=== PATIENT | female | born 1995 | race Caucasian/White ===

== ENCOUNTER 2021-09-24 03:05 | Observation (INO) | END 2021-09-24 04:12 | disposition home or self-care (01) | LOC: 1NENULAB | PROVIDERS: ADMIT Obstetrics & Gynecology; ATTEND Obstetrics & Gynecology ==

== ENCOUNTER 2021-11-14 08:52 | Inpatient (IN) ==
[~2021-11-14 08:52] MED LIST: Famotidine 20 MG/2 ML VIAL IVP PRN; Metoclopramide 10 MG/2 ML VIAL IVP PRN; Naloxone 0.4 MG/ML INJ IVP PRN
[2021-11-14] MEDS ORDERED: Ringers Solution, Lactated 1,000 ML IVC ONE (08:57)
[2021-11-14] MEDS ORDERED: Ringers Solution, Lactated 1,000 ML IVC SCH ×2 (09:00→18:17)
[2021-11-14 10:17] LABS: Basophils % 0.3 %; Eosinophils % 0.1 %; Hematocrit 34.9 % (35.3-44.9); Hemoglobin 11.8 g/dL (11.5-15.4); Lymphocytes # 1.8 K/mcL (0.6-4.6); Lymphocytes % 11.8 %; Mean Corpuscular HGB Conc 33.8 g/dL (31.6-35.5); Mean Corpuscular Hemoglobin 30.3 pg (28.0-33.3); Mean Corpuscular Volume 89.5 fL (83.0-100.0); Monocytes % 6.5 %; Neutrophils # 11.8 K/mcL (1.6-8.9); Platelet Count 322 K/mcL (140-400); Red Cell Distribution Width 12.3 % (11.5-14.5); Segmented Neutrophils % 79.3 %
[2021-11-14 10:20] LABS: White Blood Count 14.9 K/mcL (4.3-11.1)
[2021-11-14 12:14] LABS: Amphetamine Screen,Urine Negative ng/mL (Cutoff=1000); Barbiturate Screen,Urine Negative ng/mL (Cutoff=200); Benzodiazepines Screen,Urine Negative ng/mL (Cutoff=300); Cannabinoid Screen,Urine Negative ng/mL (Cutoff = 50); Cocaine Screen,Urine Negative ng/mL (Cutoff= 300); Opiate Screen,Urine Negative ng/mL (Cutoff=300); Phencyclidine Screen,Urine Negative ng/mL (Cutoff=25)
[2021-11-14] MEDS ORDERED: *HR* FentaNYL (PF) 100 MCG/2 ML VIAL ONE (13:00)
[2021-11-14] MEDS ORDERED: EPHEDrine 50 MG/ML VIAL ONE (13:00)
[2021-11-14] MEDS ORDERED: Ondansetron 4 MG/2 ML VIAL ONE (13:05)
[2021-11-14] MEDS ORDERED: CeFAZolin 2,000 MG/120 ML BAG IVPB ONE (13:07)
[2021-11-14] MEDS ORDERED: Ringers Solution, Lactated 1,000 ML ONE (14:12)
[2021-11-14] MEDS ORDERED: *HR* Morphine Sulfate/PF 10 MG/10 ML AMPUL ONE (14:25)
[2021-11-14] MEDS ORDERED: Acetaminophen IV 1,000 MG/100 ML BAG IVPB ONE (14:26)
[2021-11-14] MEDS ORDERED: *HR* HYDROmorphone PF 0.5 MG/0.5 ML SYRINGE IVP PRN (14:58)
[2021-11-14] MEDS ORDERED: Ondansetron 4 MG/2 ML VIAL IVP PRN ×2 (14:58→18:17)
[2021-11-14] MEDS ORDERED: Promethazine 6.25 MG in Water for inj. (sterile) 20 ML IVPB PRN (14:58)
[2021-11-14] MEDS ORDERED: *HR* OxyCODONE Immed Rel 5 MG TABLET PO PRN (18:17)
[2021-11-14] MEDS ORDERED: Naloxone 0.4 MG/ML INJ IVP PRN (18:17)
[2021-11-14] MEDS ORDERED: Rho Immune Globulin 1,500 UNIT SYRINGE IM ONE (18:17)
[2021-11-14] MEDS ORDERED: Simethicone 80 MG TAB.CHEW PO PRN (18:17)
[2021-11-14] MEDS ORDERED: *HR* Oxytocin 10 UNIT/ML VIAL IM ONE (18:17)
[2021-11-14] MEDS ORDERED: Metoclopramide 10 MG/2 ML VIAL IVP PRN (18:17)
[2021-11-14] MEDS: Ibuprofen 600 MG TABLET PO SCH (20:57)
[2021-11-15 04:31] LABS: Basophils % 0.1 %; Eosinophils # 0.2 K/mcL (0.0-0.6); Hematocrit 27.4 % (35.3-44.9); Immature Granulocytes % 0.9 % (0-4); Lymphocytes # 1.8 K/mcL (0.6-4.6); Lymphocytes % 11.9 %; Mean Corpuscular Hemoglobin 30.9 pg (28.0-33.3); Mean Corpuscular Volume 88.1 fL (83.0-100.0); Mean Platelet Volume 9.7 fL (9.4-12.4); Monocytes # 1.3 K/mcL (0.0-1.3); Monocytes % 8.3 %; Neutrophils # 11.6 K/mcL (1.6-8.9); Platelet Count 260 K/mcL (140-400); Red Blood Count 3.11 M/mcL (3.82-4.97); Red Cell Distribution Width 12.3 % (11.5-14.5); Segmented Neutrophils % 77.8 %
[2021-11-15 04:32] LABS: Hemoglobin 9.6 g/dL (11.5-15.4)
[2021-11-15] MEDS: Ibuprofen 600 MG TABLET PO SCH ×3 (04:40→18:49)
[2021-11-15] MEDS: Acetaminophen 325 MG TABLET PO SCH ×3 (04:40→18:49)
[2021-11-15] MEDS: Prenatal Vit/FA 1 EACH TABLET PO SCH (08:22)
[2021-11-15] MEDS ORDERED: Rho Immune Globulin 1,500 UNIT SYRINGE IM ONE (15:57)
[2021-11-16] MEDS: Acetaminophen 325 MG TABLET PO SCH ×3 (00:38→15:03)
[2021-11-16] MEDS: Ibuprofen 600 MG TABLET PO SCH ×3 (00:39→15:03)
[2021-11-16 07:01] VITALS: BP 119/75; PULSE 83; TEMP 98.2; O2SAT 97
[2021-11-16] MEDS: Prenatal Vit/FA 1 EACH TABLET PO SCH (08:29)
== END 2021-11-16 16:30 | disposition home or self-care (01) | DRG 786 ==
LOC: 1NENULAB → 1NENUOBS 18:09
PROVIDERS: ADMIT Obstetrics & Gynecology; ATTEND Obstetrics & Gynecology

== ENCOUNTER 2021-11-28 13:15 | Observation (INO) ==
[2021-11-28] MEDS ORDERED: Iopamidol - 370 500 ML MLS IVP ONE (13:48)
[2021-11-28] MEDS ORDERED: 0.9 % Sodium Chloride 1,000 ML IVC ONE (13:50)
[2021-11-28 14:31] LABS: Basophils % 0.5 %; Eosinophils # 0.3 K/mcL (0.0-0.6); Eosinophils % 3.3 %; Hematocrit 38.3 % (35.3-44.9); Hemoglobin 12.5 g/dL (11.5-15.4); Immature Granulocytes % 0.5 % (0-4); Lymphocytes # 1.7 K/mcL (0.6-4.6); Lymphocytes % 19.9 %; Mean Corpuscular HGB Conc 32.6 g/dL (31.6-35.5); Mean Corpuscular Hemoglobin 29.3 pg (28.0-33.3); Mean Corpuscular Volume 89.7 fL (83.0-100.0); Mean Platelet Volume 9.4 fL (9.4-12.4); Monocytes # 0.5 K/mcL (0.0-1.3); Monocytes % 5.6 %; Neutrophils # 6.1 K/mcL (1.6-8.9); Platelet Count 385 K/mcL (140-400); Red Blood Count 4.27 M/mcL (3.82-4.97); Red Cell Distribution Width 12.1 % (11.5-14.5); Segmented Neutrophils % 70.2 %; White Blood Count 8.7 K/mcL (4.3-11.1)
[2021-11-28 14:39] LABS: Bacteria,Urine Few per hpf (None-Few); Bilirubin,Urine Negative (Negative); Blood,Urine Small (Negative); Clarity,Urine Clear (Clear); Color,Urine Yellow (Yellow); Glucose,Urine (UA) Normal (Normal); Ketones,Urine Negative (Negative); Leukocyte Esterase,Urine Small (Negative); Mucus,Urine Few per lpf (None-Few); Nitrite,Urine Negative (Negative); PH,Urine 6.5 pH Units (5.0-8.0); Protein,Urine Trace mg/dL (Neg-Trace); Specific Gravity,Urine 1.019 (1.010-1.025); Squamous Epithelial Cell,Urine Few per hpf (None-Few); Urobilinogen,Urine Normal (Normal)
[2021-11-28 15:13] LABS: Alanine Aminotransferase 329 Units/L (7-52); Albumin 4.1 g/dL (3.5-5.7); Albumin/Globulin Ratio 1.3 (1.1-2.2); Alkaline Phosphatase 355 Units/L (34-104); Amylase 664 Units/L (29-103); Aspartate Amino Transferase 222 Units/L (13-39); BUN/Creatinine Ratio 17 (6-26); Blood Urea Nitrogen 13 mg/dL (6-20); Calcium 9.4 mg/dL (8.6-10.3); Carbon Dioxide 27 mEq/L (23-29); Chloride 104 mEq/L (98-107); Globulin 3.1 g/dL (2.4-3.5); Glucose 93 mg/dL (70-105); Lipase > 1800 Units/L (11-82); Osmolality,Calculated 288 (280-300); Potassium 3.7 mEq/L (3.5-5.1); Sodium 139 mEq/L (136-145); Total Protein 7.2 g/dL (6.4-8.9)
[2021-11-28] MEDS ORDERED: Piperacillin/Tazobactam 3.375 GM in 0.9 % Sodium Chloride Mini Bag 100 ML IVPB ONE (19:16)
[2021-11-28] MEDS: 0.9 % Sodium Chloride 1,000 ML IVC SCH (20:56)
[2021-11-28] MEDS ORDERED: Ondansetron 4 MG/2 ML VIAL IVP PRN ×2 (21:03→22:46)
[2021-11-28] MEDS ORDERED: Ketorolac 30 MG/ML VIAL IVP PRN (22:46)
[2021-11-28] MEDS ORDERED: Ipratropium Neb 0.5 MG NEBULIZER IH PRN (22:46)
[2021-11-28] MEDS ORDERED: *HR* Labetalol 20 MG/4 ML SYRINGE IVP PRN (22:46)
[2021-11-28] MEDS ORDERED: Albuterol 2.5 MG/3 ML NEBULIZER IH PRN (22:46)
[2021-11-28] MEDS ORDERED: *HR* FentaNYL (PF) 100 MCG/2 ML VIAL IVP PRN (22:46)
[2021-11-28] MEDS ORDERED: *HR* Succinylcholine 200 MG/10 ML VIAL IVP ONE (23:09)
[2021-11-28] MEDS ORDERED: *HR* Rocuronium Bromide 50 MG/5 ML VIAL ONE (23:09)
[2021-11-28] MEDS ORDERED: *HR* Propofol 200 MG/20 ML VIAL IVP ONE (23:09)
[2021-11-28] MEDS ORDERED: *HR* FentaNYL (PF) 100 MCG/2 ML VIAL ONE (23:09)
[2021-11-28] MEDS ORDERED: Ondansetron 4 MG/2 ML VIAL ONE (23:09)
[2021-11-28] MEDS ORDERED: *HR* Labetalol 20 MG/4 ML SYRINGE IVP ONE (23:20)
[2021-11-29 04:14] LABS: Basophils % 0.5 %; Eosinophils # 0.4 K/mcL (0.0-0.6); Eosinophils % 4.8 %; Hematocrit 33.9 % (35.3-44.9); Hemoglobin 11.2 g/dL (11.5-15.4); Immature Granulocytes % 0.4 % (0-4); Lymphocytes % 24.7 %; Mean Corpuscular Hemoglobin 30.1 pg (28.0-33.3); Mean Corpuscular Volume 91.1 fL (83.0-100.0); Mean Platelet Volume 9.6 fL (9.4-12.4); Monocytes # 0.5 K/mcL (0.0-1.3); Monocytes % 6.4 %; Neutrophils # 5.1 K/mcL (1.6-8.9); Platelet Count 340 K/mcL (140-400); Red Blood Count 3.72 M/mcL (3.82-4.97); Segmented Neutrophils % 63.2 %; White Blood Count 8.1 K/mcL (4.3-11.1)
[2021-11-29 04:30] LABS: Alanine Aminotransferase 242 Units/L (7-52); Albumin 3.7 g/dL (3.5-5.7); Albumin/Globulin Ratio 1.4 (1.1-2.2); Alkaline Phosphatase 309 Units/L (34-104); Aspartate Amino Transferase 114 Units/L (13-39); BUN/Creatinine Ratio 12 (6-26); Bilirubin,Total 0.6 mg/dL (0.3-1.0); Blood Urea Nitrogen 9 mg/dL (6-20); Calcium 8.5 mg/dL (8.6-10.3); Carbon Dioxide 25 mEq/L (23-29); Chloride 108 mEq/L (98-107); Globulin 2.6 g/dL (2.4-3.5); Glucose 87 mg/dL (70-105); Lipase 278 Units/L (11-82); Osmolality,Calculated 290 (280-300); Potassium 3.9 mEq/L (3.5-5.1); Sodium 141 mEq/L (136-145); Total Protein 6.3 g/dL (6.4-8.9)
[2021-11-29] MEDS: 0.9 % Sodium Chloride 1,000 ML IVC SCH ×5 (05:08→19:52)
[2021-11-29] MEDS: Acetaminophen IV 1,000 MG/100 ML BAG IVPB SCH ×4 (05:09→17:14)
[2021-11-29] MEDS ORDERED: Scopolamine Patch 1.5 MG PATCH.TD72 TD ONE ×2 (06:00→11:20)
[2021-11-29] MEDS ORDERED: Piperacillin/Tazobactam 3.375 GM in 0.9 % Sodium Chloride Mini Bag 100 ML IVPB SCH ×2 (06:00→12:00)
[2021-11-29] MEDS ORDERED: *HR* FentaNYL (PF) 100 MCG/2 ML VIAL ONE ×2 (07:25→09:24)
[2021-11-29] MEDS ORDERED: *HR* Propofol 200 MG/20 ML VIAL IVP ONE (07:26)
[2021-11-29] MEDS ORDERED: *HR* Midazolam HCl 2 MG/2 ML VIAL ONE (07:26)
[2021-11-29] MEDS ORDERED: *HR* Rocuronium Bromide 50 MG/5 ML VIAL ONE (07:29)
[2021-11-29] MEDS ORDERED: Ondansetron 4 MG/2 ML VIAL ONE (07:29)
[2021-11-29] MEDS ORDERED: *HR* Succinylcholine 200 MG/10 ML VIAL IVP ONE (07:29)
[2021-11-29] MEDS ORDERED: Iopamidol - 300 50 ML VIAL ONE (07:38)
[2021-11-29] MEDS ORDERED: Albuterol 2.5 MG/3 ML NEBULIZER IH PRN ×2 (07:44→11:20)
[2021-11-29] MEDS ORDERED: Ondansetron 4 MG/2 ML VIAL IVP PRN ×3 (07:44→11:20)
[2021-11-29] MEDS ORDERED: Naloxone 0.4 MG/ML INJ IVP PRN ×2 (07:44→11:20)
[2021-11-29] MEDS ORDERED: Bupivacaine 0.5%-Epi 1:200,000 50 ML VIAL ONE (08:51)
[2021-11-29] MEDS ORDERED: Scopolamine Patch 1.5 MG PATCH.TD72 ONE (09:01)
[2021-11-29] MEDS ORDERED: EPHEDrine 50 MG/ML VIAL ONE (09:30)
[2021-11-29] MEDS ORDERED: Sugammadex Sodium 200 MG/2 ML VIAL IV ONE (09:48)
[2021-11-29] MEDS ORDERED: *HR* HYDROMORPHONE 2 MG/ML VIAL ONE (10:12)
[2021-11-29] MEDS: *HR* HYDROmorphone PF 0.5 MG/0.5 ML SYRINGE IVP PRN ×2 (10:34→10:44)
[2021-11-29] MEDS ORDERED: *HR* HYDROmorphone PF 0.5 MG/0.5 ML SYRINGE IVP PRN (11:20)
[2021-11-29] MEDS: Piperacillin/Tazobactam 3.375 GM in 0.9 % Sodium Chloride Mini Bag 100 ML IVPB SCH ×2 (13:19→22:16)
[2021-11-29] MEDS: Simethicone 40 MG/0.6 ML MLS PO PRN (17:34)
[2021-11-30] MEDS: Acetaminophen IV 1,000 MG/100 ML BAG IVPB SCH ×3 (00:44→12:48)
[2021-11-30] MEDS: Simethicone 40 MG/0.6 ML MLS PO PRN (00:45)
[2021-11-30] MEDS: 0.9 % Sodium Chloride 1,000 ML IVC SCH ×2 (04:53→12:48)
[2021-11-30] MEDS: Piperacillin/Tazobactam 3.375 GM in 0.9 % Sodium Chloride Mini Bag 100 ML IVPB SCH (06:12)
[2021-11-30 09:25] LABS: Basophils % 0.5 %; Eosinophils # 0.3 K/mcL (0.0-0.6); Eosinophils % 4.7 %; Hematocrit 31.7 % (35.3-44.9); Hemoglobin 10.4 g/dL (11.5-15.4); Immature Granulocytes % 0.2 % (0-4); Lymphocytes # 1.7 K/mcL (0.6-4.6); Lymphocytes % 30.2 %; Mean Corpuscular HGB Conc 32.8 g/dL (31.6-35.5); Mean Corpuscular Hemoglobin 30.1 pg (28.0-33.3); Mean Corpuscular Volume 91.9 fL (83.0-100.0); Mean Platelet Volume 9.4 fL (9.4-12.4); Monocytes # 0.3 K/mcL (0.0-1.3); Monocytes % 5.8 %; Neutrophils # 3.4 K/mcL (1.6-8.9); Platelet Count 292 K/mcL (140-400); Red Blood Count 3.45 M/mcL (3.82-4.97); Red Cell Distribution Width 12.1 % (11.5-14.5); Segmented Neutrophils % 58.6 %; White Blood Count 5.7 K/mcL (4.3-11.1)
[2021-11-30 09:33] LABS: INR 1.1; Prothrombin Time 12.3 Seconds (9.4-12.1)
[2021-11-30 09:40] LABS: Alanine Aminotransferase 165 Units/L (7-52); Albumin 3.5 g/dL (3.5-5.7); Albumin/Globulin Ratio 1.5 (1.1-2.2); Alkaline Phosphatase 318 Units/L (34-104); Aspartate Amino Transferase 62 Units/L (13-39); BUN/Creatinine Ratio 7 (6-26); Bilirubin,Direct 0.1 mg/dL (0.0-0.2); Bilirubin,Indirect 0.4 mg/dL (0.0-1.0); Bilirubin,Total 0.5 mg/dL (0.3-1.0); Blood Urea Nitrogen 5 mg/dL (6-20); Carbon Dioxide 25 mEq/L (23-29); Chloride 111 mEq/L (98-107); Globulin 2.4 g/dL (2.4-3.5); Glucose 82 mg/dL (70-105); Lipase 43 Units/L (11-82); Osmolality,Calculated 288 (280-300); Potassium 3.5 mEq/L (3.5-5.1); Sodium 141 mEq/L (136-145); Total Protein 5.9 g/dL (6.4-8.9)
[2021-11-30] MEDS ORDERED: Simethicone 40 MG/0.6 ML MLS ONE (10:22)
[2021-11-30] MEDS ORDERED: Lidocaine -MPF 2% 5 ML VIAL ONE (10:31)
[2021-11-30] MEDS ORDERED: *HR* Propofol 200 MG/20 ML VIAL IVP ONE (10:31)
[2021-11-30] MEDS ORDERED: Ondansetron 4 MG/2 ML VIAL ONE (10:31)
[2021-11-30] MEDS ORDERED: *HR* Rocuronium Bromide 50 MG/5 ML VIAL ONE (10:31)
[2021-11-30] MEDS ORDERED: *HR* HYDROmorphone PF 0.5 MG/0.5 ML SYRINGE IVP PRN (10:42)
[2021-11-30] MEDS ORDERED: *HR* OxyCODONE Immed Rel 5 MG TABLET PO PRN (10:42)
[2021-11-30] MEDS ORDERED: Indomethacin 50 MG SUPP.RECT RC ONE (11:15)
[2021-11-30 11:56] VITALS: O2SAT 100
[2021-11-30 12:02] VITALS: BP 115/79; PULSE 60; TEMP 97.3
== END 2021-11-30 14:14 | disposition home or self-care (01) ==
LOC: EMEROOARM 13:15 → 2ANU 13:15
PROVIDERS: ADMIT Surgery; ATTEND Surgery